=== PATIENT | male | born 1955 | race Two or more races ===

== ENCOUNTER 2021-07-13 09:55 | Day surgery (SDC) | payer OTHER ==
[~2021-07-13] VITALS: Ht 185.4 cm; Wt 133.8 kg
[~2021-07-13 09:55] MED LIST: ALBUAER3 IN; AMIO200T33 PO; APIX5TAB PO; ATOR40TA52 PO; BECL40AE11 IN; DRON400T PO; GABA300C10 PO; LISI2.5T47 PO; METO25TA5 PO; POM
[2021-07-13] MEDS ORDERED: fentaNYL CITRATE 100 MCG/2 ML VL IV ONE (10:15)
[2021-07-13] MEDS ORDERED: LIDOCAINE VISCOUS 2% 15ML UD MT ONE (10:15)
[2021-07-13] MEDS ORDERED: diphenhdrAMINE HCL 50 MG/1 ML VL IV ONE (10:15)
[2021-07-13] MEDS ORDERED: MIDAZOLAM HCL 2MG/2ML 2ml VIAL (1mg/ml) IV ONE (10:15)
[2021-07-13] MEDS ORDERED: ALBUTEROL SULF 2.5 MG/0.5ML(0.5%) NEB SOLN NEB SCH (18:00)
[2021-07-13] MEDS ORDERED: AMIODARONE HCL 200 MG TAB PO SCH (22:00)
[2021-07-13] MEDS ORDERED: METOPROLOL TARTRATE 25 MG TAB PO SCH (22:00)
[2021-07-13] MEDS ORDERED: APIXABAN 5 MG TAB PO SCH (22:00)
[2021-07-13] MEDS ORDERED: GABAPENTIN 300 MG CAP PO SCH (22:00)
== END 2021-07-13 13:34 | disposition home or self-care (01) ==
LOC: CATH 09:55
PROVIDERS: ATTEND Internal Medicine
DX: I48.19 Other persistent atrial fibrillation (principal); I50.9 Heart failure, unspecified; F15.10 Other stimulant abuse, uncomplicated; Z87.891 Personal history of nicotine dependence; Z91.041 Radiographic dye allergy status; I25.10 Atherosclerotic heart disease of native coronary artery without angina pectoris; Z79.02 Long term (current) use of antithrombotics/antiplatelets; Z90.49 Acquired absence of other specified parts of digestive tract; Z82.49 Family history of ischemic heart disease and other diseases of the circulatory system; Z95.5 Presence of coronary angioplasty implant and graft; Z20.822 Contact with and (suspected) exposure to COVID-19
CPT/HCPCS: 92960; 93312; J1200; J2250; J3010; U0003; 99152